=== PATIENT | male | born 1975 ===

== ENCOUNTER 2018-01-21 11:37 | Inpatient (IN) | payer BC ==
--- NOTE | 2018-01-21 11:56 | ED PDOC ---
Arrival/HPI - General Time Seen by Provider: 01/21/18 11:52 Historian: Patient - History of Present Illness Narrative History of Present Illness (Text): 01/21/18 11:53 42 year old male, whose past medical history includes anxiety and depression, who presents to the Emergency department complaining of a bad episode of depression. Patient notes he's been trying to deal with it himself but "it's too overwhelming". Patient notes he is not suicidal but has negative thoughts about hurting himself. Patient notes he recently put dog's collar around his neck. On another occasion, patient put screw mobile lounge driver or operator to chest to hurt himself. Patient denies any fevers, chills, chest pain, shortness of breath, abdominal pain, nausea, vomiting, diarrhea, back pain, neck pain, urinary symptoms, headache, dizziness, homicidal ideation or any other complaint. Symptom Course: Unchanged Activities at Onset: Light Context: Home Past Medical History - Provider Review Nursing Documentation Reviewed: Yes Family/Social History - Physician Review Nursing Documentation Reviewed: Yes Family/Social History: Unknown Family HX Allergies/Home Meds Allergies/Adverse Reactions: Allergies No Known Allergies Allergy (Verified 01/21/18 12:03) Home Medications: Home Meds Medication Instructions Recorded Confirmed Alprazolam [Xanax] 0.5 mg PO PRN PRN 01/21/18 01/21/18 Review of Systems - Physician Review All systems were reviewed & negative as marked: Yes - Review of Systems Constitutional: Normal Eyes: Normal ENT: Normal Respiratory: Normal. absent: SOB, Cough Cardiovascular: Normal. absent: Chest Pain Gastrointestinal: Normal. absent: Abdominal Pain, Diarrhea, Nausea, Vomiting Genitourinary Male: Normal. absent: Dysuria, Frequency Musculoskeletal: Normal. absent: Back Pain, Neck Pain Skin: Normal. absent: Rash Neurological: Normal. absent: Headache, Dizziness Endocrine: Normal Hemo/Lymphatic: Normal Psychiatric: Depression Physical Exam - Physical Exam Narrative Physical Exam (Text): 01/21/18 12:08 01/21/18 12:07 Gen: VS reviewed, alert, well developed, well nourished, nontoxic, mild distress. Sad aspect. ENT: normal pharynx. Eye: EOMI, PERRL. Neck: no JVD, supple, no adenopathy. CV: regular rate, regular rhythm, no rubs, no murmur, no gallops, S1, S2, pulses equal and strong. Pulm: no distress, clear to auscultation, no wheeze, no rhonchi, breath sounds equal, no rales. Abd: soft, nontender, no guarding, no rebound, no rigidity, normal bowel sounds. Ext: no edema. Skin: good color, no rash, no cyanosis. Psych: responds appropriately to questions, normal affect. Neuro: oriented x 3, CN2-12 intact grossly, motor intact, sensation intact. Vital Signs Reviewed: Yes Vital Signs Temp Pulse Resp BP Pulse Ox 01/21/18 11:49 98.4 F 65 18 104/67 100 01/21/18 11:37 98.4 F 65 18 104/67 100 Temperature: Afebrile Blood Pressure: Normal Pulse: Regular Respiratory Rate: Normal Appearance: Positive for: Well-Appearing, Non-Toxic, Comfortable Pain Distress: None Mental Status: Positive for: Alert and Oriented X 3 Medical Decision Making ED Course and Treatment: 01/21/18 12:08 Impression: 42 year old male presents to the Emergency department complaining of a bad episode of depression. Plan: -- EKG -- Labs -- CXR -- UA -- Reassess and disposition Progress Notes: 01/21/18 13:08 CXR reviewed, shows: LUNGS: No active pulmonary disease. PLEURA: No significant pleural effusion identified, no pneumothorax apparent. CARDIOVASCULAR: Normal. OSSEOUS STRUCTURES: No significant abnormalities. VISUALIZED UPPER ABDOMEN: Normal. OTHER FINDINGS: None. IMPRESSION: No active disease. 01/21/18 15:02 admit accepted to service of dr. griffiths for inpt tx of depression and suicidal ideation. patient is medically stable for psych eval, admit, transfer if needed. 01/21/18 15:06 - Lab Interpretations Lab Results: 01/21/18 12:40 01/21/18 12:40 Lab Results 01/21/18 12:40: Alcohol, Quantitative < 10 01/21/18 12:40: Salicylates < 1 L, Acetaminophen < 10.0 L 01/21/18 12:40: Sodium 142, Potassium 4.2, Chloride 104, Carbon Dioxide 26, Anion Gap 16, BUN 15, Creatinine 1.1, Est GFR ( Amer) > 60, Est GFR (Non- Af Amer) > 60, Random Glucose 97, Calcium 9.7, Total Bilirubin 1.2, AST 29, ALT 33, Alkaline Phosphatase 68, Total Protein 7.4, Albumin 4.5, Globulin 2.9, Albumin/Globulin Ratio 1.6 01/21/18 12:40: WBC 5.9, RBC 4.99, Hgb 14.3, Hct 41.1 L, MCV 82.4, MCH 28.7, MCHC 34.8, RDW 13.1, Plt Count 193, MPV 9.5, Gran % 60.9, Lymph % (Auto) 31.6, [place] % (Auto) 7.0 H, Eos % (Auto) 0.3 L, Baso % (Auto) 0.2, Gran # 3.58, Lymph # (Auto) 1.9, [place] # (Auto) 0.4, Eos # (Auto) 0.0, Baso # (Auto) 0.01 - RAD Interpretation Radiology Orders: 01/21/18 12:04 CHEST PORTABLE [RAD] Stat - Scribe Statement The provider has reviewed the documentation as recorded by the Scribe Yahaira Mata All medical record entries made by the Scribe were at my direction and personally dictated by me. I have reviewed the chart and agree that the record accurately reflects my personal performance of the history, physical exam, medical decision making, and the department course for this patient. I have also personally directed, reviewed, and agree with the discharge instructions and disposition. Disposition/Present on Arrival - Present on Arrival Any Indicators Present on Arrival: No - Disposition Have Diagnosis and Disposition been Completed?: Yes Diagnosis: Depression Disposition Time: 15:03 Patient Plan: Admission Patient Problems: Current Active Problems Problem Status Onset Depression Acute Condition: STABLE
[2018-01-21 12:09] VITALS: O2SAT 100
[2018-01-21 12:58] LABS: BASO # 0.01 K/mm3 (0.0-2.0); BASO % 0.2 % (0.0-3.0); EOS % 0.3 % (1.5-5.0); GRAN # 3.58 (1.4-6.5); GRAN % 60.9 % (50.0-68.0); HEMOGLOBIN 14.3 g/dL (14.0-18.0); LYMPH # 1.9 (1.2-3.4); LYMPH % 31.6 % (22.0-35.0); MEAN CELL VOLUME 82.4 fl (80.0-105.0); MEAN CORPUSCULAR HEMOGLOBIN 28.7 pg (25.0-35.0); MEAN CORPUSCULAR HGB CONC 34.8 g/dl (31.0-37.0); MEAN PLATELET VOLUME 9.5 fl (7.0-11.0); MONO # 0.4 (0.1-0.6); RBC 4.99 10^6/uL (3.5-6.1); RED CELL DISTRIBUTION WIDTH 13.1 % (11.5-14.5); WHITE BLOOD COUNT 5.9 10^3/ul (4.5-11.0)
--- NOTE | 2018-01-21 13:04 | RAD ---
Date of service: 01/21/2018 HISTORY: medical screening COMPARISON: No prior. FINDINGS: LUNGS: No active pulmonary disease. PLEURA: No significant pleural effusion identified, no pneumothorax apparent. CARDIOVASCULAR: Normal. OSSEOUS STRUCTURES: No significant abnormalities. VISUALIZED UPPER ABDOMEN: Normal. OTHER FINDINGS: None. IMPRESSION: No active disease.
[2018-01-21 13:07] LABS: ALB/GLOB RATIO 1.6 (1.1-1.8); ALBUMIN 4.5 g/dL (3.0-4.8); ALT/SGPT 33 U/L (7-56); AST/SGOT 29 U/L (17-59); BLOOD UREA NITROGEN 15 mg/dL (7-21); CALCIUM 9.7 mg/dL (8.4-10.5); GFR AFRICAN-AMERICAN > 60; GFR NON-AFRICAN AMERICAN > 60
[2018-01-21 13:08] LABS: ACETAMINOPHEN < 10.0 ug/ml (10.0-20.0); SALICYLATE < 1 mg/dL (2.0-20.0)
[2018-01-21 15:21] LABS: URINE BILIRUBIN NEGATIVE (NEGATIVE); URINE BLOOD NEGATIVE (NEGATIVE); URINE GLUCOSE (UA) NEGATIVE (NEGATIVE); URINE LEUKOCYTE ESTERASE NEGATIVE Leu/uL (NEGATIVE); URINE PROTEIN NEGATIVE mg/dL (<30 mg/dL); URINE UROBILINOGEN 0.2 E.U./dL (<1 E.U./dL)
[2018-01-21 15:23] LABS: URINE APPEARANCE CLEAR (CLEAR); URINE COLOR YELLOW (YELLOW)
[2018-01-21 15:42] LABS: BARBITURATES, UR NEGATIVE (NEGATIVE); BENZODIAZEPINES, UR POSITIVE (NEGATIVE); OPIATES, UR NEGATIVE (NEGATIVE); PHENCYCLIDINE, UR NEGATIVE (NEGATIVE)
--- NOTE | 2018-01-21 19:09 | PCM.BM ---
<Trisha Francis - Last Filed: 01/21/18 19:06> Treatment Plan Problems - Problems identified on initial assessmt high risk suicidal Date Initiated: 01/21/18 Time Initiated: 19:07 Assessment reference: NA Status: Active hopeless/helplessness Date Initiated: 01/21/18 Time Initiated: 19:07 Assessment reference: NA Status: Active ineffective coping Date Initiated: 01/21/18 Time Initiated: 19:08 Assessment reference: NA Status: Active altered sleep pattern Date Initiated: 01/21/18 Time Initiated: 19:09 Assessment reference: NA Status: Active Treatment assets and liabiliti Patient Assests: adapts well, cooperative, ADL independent, good support system , negotiates basic needs Patient Liabilities: other - Milieu Protocol Maintain good personal hygiene: daily Encourage regular showers, daily Remind patient to perform daily oral care, every shift Assist patient to perform ADL's Conduct patient checks and document Observation sheet: Q15 minutes Maintain personal safety: every shift Educate patient to report safety concerns to staff, every shift Monitor environment for contraband/sharps Medication safety: Monitor for expected outcome, potential side effects: every shift, Assess barriers to learning: every shift, Assess readiness for medication education: every shift Family Contact Family involvement: Family/SO is involved - Goals for Treatment Patient goals for treatment: '' I WANT TO GET BETTER AND FEEL LIKE MYSELF". Discharge/Continuing Care - Education Needs Education Needs: Patient Medication, Patient Diagnosis/Disease Process, Patient Coping Skills - Discharge Discharge Criteria: Tolerates medication w/o severe side effects, Free of Suicidal thoughts, Free of Homicidal thoughts, Free of paranoid thoughts, Free of agitation, Normal sleep pattern, Ability to care for self <Marisela Price - Last Filed: 01/23/18 08:04> Family Contact Family involvement: Family/SO is involved <Niurka Hernandez - Last Filed: 01/24/18 09:21> - Diagnosis (1) MDD (major depressive disorder) Status: Acute Interventions: 01/24/18 09:21 Psychoeducation Psychopharmacology/adjustment of medications as needed/ monitoring possible side effects Evaluate pt on daily basis Compliance with medications and follow up appointments Suicide and homicide risk assessment and prevention Relapse prevention Reduction of symptoms Improve functional status Family involvement As outpatient: cognitive behavioral therapy
[2018-01-22 07:07] VITALS: RESP 20
--- NOTE | 2018-01-22 12:42 | CARD ---
APPROVED REPORT Date of service: 01/21/2018 EKG Measurement Heart [id number] <Conclusion> Sinus bradycardia Otherwise normal ECG
--- NOTE | 2018-01-22 15:10 | PCM.PSYCH ---
Initial Psychiatric Evaluation - Initial Psychiatric Evaluation Type of Admission: Voluntary Legal Status: Capacity (atient has capacity to sign consent for treatment) Chief Complaint (in patient's own words): "I was just overwhelmed" Patient's Reaction to Hospitalization: patient was admitted for evaluation and stabilization ofdepressive symptoms and possible suicidal ideation History of Present Illness and Precipitating Events: shortly patient is 42-year-old male self reported history of anxiety and depression patient came to the hospital looking for help for his depression as well as possible suicidal ideation, patient pose a danger to self and offered to admission he shouldn't reluctantly signed in into the psychiatric inpatient unit facing involuntary commitment. Patient was seen today at the treatment team meeting, patient presented to have good personal hygiene, good ADLs. Patient reported that he was stressed out about buying the new house, patient reported that he was feeling depressed constantly thinking about it, feeling anxious, patient reported that he started to see Dr. Jose Clark, Recently diagnosed him with ADHD, patient reported that he was prescribed stimulants but he did not tolerate that medication well patient reported that he was feeling very anxious restless and was not able to tolerate that medication well. As per report patient was pointing screwdriver into his chest, dog's collar around his neck in order to kill himself. patient try to minimize his symptoms saying that "I was just overwhelmed. patient reported to feel hopeless, helpless , depressed. Patient denied hearing voices denied seeing things, patient does not present to be psychotic. Patient denied any drugs use, denied smoking cigarettes. patient reported that probably he would feel very anxious, sweating, difficulty being in public areas around people in general, diff. breathing and chest pain. patient lost about 16 lbs in the past 3 weeks ue to his depression. patient reported that he feels remorseful about his affect, patient has family to live for, patient wants to be discharged tomorrow because patient has closing was his house tomorrow. patient denied using drugs, denied smoking cigarettes. Patient reported history of major depressive disorder and generalized anxiety disorder patient was on paxil in the past as well as Klonopin, sonata was started yesterday, patient tolerates medications well, reported that he slept well. patient denied history of suicidal attempts, patient denied history of being admitted to psychiatric inpatient unit. Family history: Patient denied Medical history: Patient denies medical history. 01/21/18 12:40 01/21/18 12:40 Lab Results 01/21/18 15:10: Urine Opiates Screen Negative, Urine Methadone Screen Negative, Ur Barbiturates Screen Negative, Ur Phencyclidine Scrn Negative, Ur Amphetamines Screen Negative, U Benzodiazepines Scrn Positive H, U Oth Cocaine Metabols Negative, U Cannabinoids Screen Negative 01/21/18 15:10: Urine Color Yellow, Urine Appearance Clear, Urine pH 6.0, Ur Specific [place] 1.010, Urine Protein Negative, Urine Glucose (UA) Negative, Urine Ketones Negative, Urine Blood Negative, Urine Nitrate Negative, Urine Bilirubin Negative, Urine Urobilinogen 0.2, Ur Leukocyte Esterase Negative 01/21/18 12:40: Alcohol, Quantitative < 10 01/21/18 12:40: Salicylates < 1 L, Acetaminophen < 10.0 L 01/21/18 12:40: Sodium 142, Potassium 4.2, Chloride 104, Carbon Dioxide 26, Anion Gap 16, BUN 15, Creatinine 1.1, Est GFR ( Amer) > 60, Est GFR (Non- Af Amer) > 60, Random Glucose 97, Calcium 9.7, Total Bilirubin 1.2, AST 29, ALT 33, Alkaline Phosphatase 68, Total Protein 7.4, Albumin 4.5, Globulin 2.9, Albumin/Globulin Ratio 1.6 01/21/18 12:40: WBC 5.9, RBC 4.99, Hgb 14.3, Hct 41.1 L, MCV 82.4, MCH 28.7, MCHC 34.8, RDW 13.1, Plt Count 193, MPV 9.5, Gran % 60.9, Lymph % (Auto) 31.6, [place] % (Auto) 7.0 H, Eos % (Auto) 0.3 L, Baso % (Auto) 0.2, Gran # 3.58, Lymph # (Auto) 1.9, [place] # (Auto) 0.4, Eos # (Auto) 0.0, Baso # (Auto) 0.01 Vital Signs Temp Pulse Pulse Resp BP Pulse Ox 01/22/18 07:06 98.0 F 56 L 20 113/67 01/21/18 18:22 57 L 18 01/21/18 15:52 98.7 F 52 L 18 122/74 100 01/21/18 15:44 98.7 F 52 L 18 122/74 100 01/21/18 11:49 98.4 F 65 18 104/67 100 01/21/18 11:37 98.4 F 65 18 104/67 100 harmacy report was obtained patient was on alprazolam 0.5 mg filed on January 07 Vyvanse 50 mg daily filed January 17 Current Medications: Active Medications Generic Name Dose Route Start Last Admin Trade Name Freq PRN Reason Stop Dose Admin Clonazepam 1 mg 01/21/18 16:29 01/22/18 08:58 Klonopin PO 1 mg BID TREASURE Administration Protocol Clonazepam 1 mg 01/21/18 22:00 01/21/18 21:49 Klonopin PO 1 mg HS TREASURE Administration Protocol Lorazepam 2 mg 01/21/18 15:39 Ativan PO Q6 PRN anxiety/agitation Protocol Lorazepam 2 mg 01/21/18 15:45 Ativan IM Q6 PRN anxiety/agitation Protocol Paroxetine HCl 20 mg 01/21/18 22:00 01/21/18 21:49 Paxil PO 20 mg HS TREASURE Administration Zaleplon 5 mg 01/21/18 15:39 01/21/18 21:49 Sonata PO 5 mg HS PRN Administration Insomnia Ziprasidone 20 mg 01/21/18 15:39 Geodon Inj IM Q6 PRN agitation/anxiety Protocol Ziprasidone 20 mg 01/21/18 15:39 Geodon Cap PO Q6 PRN agitation/anxiety Protocol Past Psychiatric History - Past Psychiatric History Prior Professional Help: see HPI Prior Psychiatric Treatment: see HPI At what hospital: see HPI Duration: see HPI Nature of Treatment: see HPI Explanation of prior treatment: see HPI History of Abuse: see HPI History of ETOH/Drug Use: see HPI History of Family Illness: see HPI Pertinent Medical Hx (Current Medical&Sleep Prob, Allergies): Allergies Allergy/AdvReac Type Severity Reaction Status Date / Time No Known Allergies Allergy Verified 01/21/18 18:59 Alprazolam [Xanax] 0.5 mg PO PRN PRN 01/21/18 Review of Systems - Review of Systems Systems not reviewed;Unavailable: Acuity of Condition - EENT Eyes: As Per HPI Ears: As Per HPI Nose/Mouth/Throat: As Per HPI - Cardiovascular Cardiovascular: As Per HPI - Respiratory Respiratory: As Per HPI - Gastrointestinal Gastrointestinal: As Per HPI - Genitourinary Genitourinary: As Per HPI - Reproductive: Male Reproductive:Male: As Per HPI - Musculoskeletal Musculoskeletal: As Par HPI - Integumentary Integumentary: As Per HPI - Neurological Neurological: As Per HPI - Psychiatric Psychiatric: As Per HPI - Endocrine Endocrine: As Per HPI - Hematologic/Lymphatic Hematologic: As Per HPI Mental Status Examination - Personal Presentation Personal Presentation: Looks stated age - Affect Affect: Flat - Motor Activity Motor Activity: Calm - Reliability in Providing Information Reliability in Providing Information: Fair - Speech Speech: Organized - Mood Mood: Depressed - Formal Thought Process Formal Thought Process: No Impairment - Obsessions/Compulsions Obsessions: None - Cognitive Functions Orientation: Person Attention/Concentration: Easily distracted Estimate of Intelligence: Average Judgement: Intact, as evidence by: Insight regarding need for hospitalization - Risk Risk: Diminished functioning - Strength & Assets Inventory Strength & Assets Inventory: Intelligence, Family support, Education, Employment status, Employment history, Cooperative - Limitations Limitations: Other (SI) DSM 5 DX - DSM 5 DSM 5 Diagnosis: rule out major depressive disorder Rule out generalized anxiety disorder Rule out side effect on stimulants rule out adjustment disorder with depressed and anxious mood - Recommended/Plan of Treatment Treatment Recommendations and Plan of Treatment: Milieu/structure/supportive therapy Medical consult will be considered Paxil was started for depression and anxiety Klonopin 1 mg 3 times a day started for anxiety Sonata 5 mg at the nighttime as needed for insomnia SW consultation for discharge plan and social issues Med management (specify the name, doses, plan to titrate or wean it off) Family involvement Follow up on labs Will monitor closely Pt was educated about risk/benefits and alternatives of medications, coping strategies (safety plan, suicide prevention), relapse prevention, importance of follow up with psychiatrist and therapist, stay away from drugs/alcohol/smoking Projected ELOS: 7 days Prognosis: fair Discharge Plan and Discharge Criteria: Pt will be not depressed or manic, will be more hopeful, will be not psychotic or anxious, will be not having thoughts of harming self or others, will be tolerating medications well, will not have major side effects, will be able to function, will not pose threat to self or others. - Smoking Cessation Smoking Cessation Initiated: No Reason for not providing: denied
--- NOTE | 2018-01-23 17:10 | PCM.PYCHPN ---
Psychiatric Progress Note - Psychiatric Progress Note Patient seen today, length of contact: 30 minutes Patient Chief Complaint: "I feel little better". Problems Identified/Issues Discussed: Suicide/ homicide prevention, past psychiatric h/o, current psychiatric symptoms , medical problems, risk/benefits and alternatives of medications, medications compliance, coping strategies, substance abuse h/o, relapse prevention, importance of follow up with psychiatrist and therapist, discharge plan. Medical Problems: patient reports being healthy Diagnostic Results: 01/21/18 12:40 01/21/18 12:40 Lab Results 01/21/18 15:10: Urine Opiates Screen Negative, Urine Methadone Screen Negative, Ur Barbiturates Screen Negative, Ur Phencyclidine Scrn Negative, Ur Amphetamines Screen Negative, U Benzodiazepines Scrn Positive H, U Oth Cocaine Metabols Negative, U Cannabinoids Screen Negative 01/21/18 15:10: Urine Color Yellow, Urine Appearance Clear, Urine pH 6.0, Ur Specific [place] 1.010, Urine Protein Negative, Urine Glucose (UA) Negative, Urine Ketones Negative, Urine Blood Negative, Urine Nitrate Negative, Urine Bilirubin Negative, Urine Urobilinogen 0.2, Ur Leukocyte Esterase Negative 01/21/18 12:40: Alcohol, Quantitative < 10 01/21/18 12:40: Salicylates < 1 L, Acetaminophen < 10.0 L 01/21/18 12:40: Sodium 142, Potassium 4.2, Chloride 104, Carbon Dioxide 26, Anion Gap 16, BUN 15, Creatinine 1.1, Est GFR ( Amer) > 60, Est GFR (Non- Af Amer) > 60, Random Glucose 97, Calcium 9.7, Total Bilirubin 1.2, AST 29, ALT 33, Alkaline Phosphatase 68, Total Protein 7.4, Albumin 4.5, Globulin 2.9, Albumin/Globulin Ratio 1.6 01/21/18 12:40: WBC 5.9, RBC 4.99, Hgb 14.3, Hct 41.1 L, MCV 82.4, MCH 28.7, MCHC 34.8, RDW 13.1, Plt Count 193, MPV 9.5, Gran % 60.9, Lymph % (Auto) 31.6, [place] % (Auto) 7.0 H, Eos % (Auto) 0.3 L, Baso % (Auto) 0.2, Gran # 3.58, Lymph # (Auto) 1.9, [place] # (Auto) 0.4, Eos # (Auto) 0.0, Baso # (Auto) 0.01 Vital Signs Temp Pulse Pulse Resp BP Pulse Ox 01/23/18 16:00 50 L 117/74 01/23/18 07:05 97.4 F L 75 20 111/77 01/22/18 16:00 52 L 118/76 01/22/18 07:06 98.0 F 56 L 20 113/67 01/21/18 18:22 57 L 18 01/21/18 15:52 98.7 F 52 L 18 122/74 100 01/21/18 15:44 98.7 F 52 L 18 122/74 100 01/21/18 11:49 98.4 F 65 18 104/67 100 01/21/18 11:37 98.4 F 65 18 104/67 100 DSM 5 Symptoms Update: shortly patient is 42-year-old male self reported history of anxiety and depression patient came to the hospital looking for help for his depression as well as possible suicidal ideation, patient pose a danger to self and offered to admission he shouldn't reluctantly signed in into the psychiatric inpatient unit facing involuntary commitment. Patient was seen today at the treatment team meeting, presented to be depressed, flat affect, patient reported that his sleep is improving, patient reported that he feels anxious but "I feel better', yesterday patient insisted to be discharged back to the patient seems to be willing to stay in the hospital until tomorrow, as per staff patient is trying to participate in all group activities, no agitation, no aggression, no psychosis. patient was advised to stay away from the stimulants, patient verbalize understanding. Patient tolerates medications well, no side effects observed or reported, aims 0 , no EPS. Impression: DSM 5 Diagnosis: rule out major depressive disorder Rule out generalized anxiety disorder Rule out side effect from stimulants rule out adjustment disorder with depressed and anxious mood Medication Change: Yes (Paxil was increased to 30 mg) Medical Record Reviewed: Yes Consults ordered or reviewed: patient was seen by medical team in the emergency room, does not require to have medical consult Mental Status Examination - Cognitive Function Orientation: Person, Place, Situation, Time Memory: Intact Attention: Poor Concentration: Poor Association: WNL Fund of Knowledge: WNL - Mood Mood: Depressed ("I feel little better") - Affect Affect: Flat - Speech Speech: Appropriate - Formal Thought Process Formal Thought Process: No Impairment - Suicidal Ideation Suicidal Ideation: No - Homicidal Ideation Homicidal Ideation: No Goal/Treatment Plan - Goal/Treatment Plan Need for Continued Stay: Remain at risks for inpatient hospitalization, Severe depression anxiety, Discharge may exacerbated symptoms, Severe functional impairment Progress Toward Problem(s) and Goals/Treatment Plan: Milieu/structure/supportive therapy Medical consult will be considered Paxil 30 mg at the nighttime depression and anxiety Klonopin 1 mg 3 times a day started for anxiety Sonata 5 mg at the nighttime as needed for insomnia SW consultation for discharge plan and social issues Med management (specify the name, doses, plan to titrate or wean it off) Family involvement Follow up on labs Will monitor closely Pt was educated about risk/benefits and alternatives of medications, coping strategies (safety plan, suicide prevention), relapse prevention, importance of follow up with psychiatrist and therapist, stay away from drugs/alcohol/smoking Estimated Date of D/C: 01/24/18
[2018-01-24 07:16] VITALS: BP 112/69; PULSE 61; TEMP 97.6
--- NOTE | 2018-01-25 08:57 | PCM.PYCHDC ---
Mental Status Examination - Mental Status Examination Orientation: Person, Place, Situation, Time Memory: Intact Mood: Neutral Affect: Constricted (but more reactive, mood congruent) Speech: Appropriate Attention: WNL (much improved) Concentration: WNL (much improved) Association: WNL Fund of Knowledge: WNL Formal Thought Process: No Impairment Description of patient's judgement and insight: Pt has improved insight into mental and medical illness, pt was compliant with medications and unit rules and regulations, pt was going to groups, was calm, cooperative, socially appropriate, no behavioral incidents, no agitation, no aggression. Psychotic Thoughts and Behaviors: Pt denied v/a/t hallucinations, denied paranoid ideations, pt does not appear to be psychotic, and thought process is goal directed. Suicidal Ideation: No Current Homicidal Ideation?: No Plan: pt adamantly denied thoughts of harming self or others denied intent or plan. Discharge Summary - Discharge Note Reason for Hospitalization: patient was admitted for evaluation and stabilization of depressive symptoms and possible suicidal ideation Psychiatric History (includes Medical, Family, Personal Hx): see HPI Laboratory Data: 01/21/18 12:40 01/21/18 12:40 Lab Results 01/21/18 15:10: Urine Opiates Screen Negative, Urine Methadone Screen Negative, Ur Barbiturates Screen Negative, Ur Phencyclidine Scrn Negative, Ur Amphetamines Screen Negative, U Benzodiazepines Scrn Positive H, U Oth Cocaine Metabols Negative, U Cannabinoids Screen Negative 01/21/18 15:10: Urine Color Yellow, Urine Appearance Clear, Urine pH 6.0, Ur Specific [place] 1.010, Urine Protein Negative, Urine Glucose (UA) Negative, Urine Ketones Negative, Urine Blood Negative, Urine Nitrate Negative, Urine Bilirubin Negative, Urine Urobilinogen 0.2, Ur Leukocyte Esterase Negative 01/21/18 12:40: Alcohol, Quantitative < 10 01/21/18 12:40: Salicylates < 1 L, Acetaminophen < 10.0 L 01/21/18 12:40: Sodium 142, Potassium 4.2, Chloride 104, Carbon Dioxide 26, Anion Gap 16, BUN 15, Creatinine 1.1, Est GFR ( Amer) > 60, Est GFR (Non- Af Amer) > 60, Random Glucose 97, Calcium 9.7, Total Bilirubin 1.2, AST 29, ALT 33, Alkaline Phosphatase 68, Total Protein 7.4, Albumin 4.5, Globulin 2.9, Albumin/Globulin Ratio 1.6 01/21/18 12:40: WBC 5.9, RBC 4.99, Hgb 14.3, Hct 41.1 L, MCV 82.4, MCH 28.7, MCHC 34.8, RDW 13.1, Plt Count 193, MPV 9.5, Gran % 60.9, Lymph % (Auto) 31.6, [place] % (Auto) 7.0 H, Eos % (Auto) 0.3 L, Baso % (Auto) 0.2, Gran # 3.58, Lymph # (Auto) 1.9, [place] # (Auto) 0.4, Eos # (Auto) 0.0, Baso # (Auto) 0.01 Vital Signs Temp Pulse Pulse Resp BP Pulse Ox 01/24/18 07:16 97.6 F 61 20 112/69 01/23/18 16:00 50 L 117/74 01/23/18 07:05 97.4 F L 75 20 111/77 01/22/18 16:00 52 L 118/76 01/22/18 07:06 98.0 F 56 L 20 113/67 01/21/18 18:22 57 L 18 01/21/18 15:52 98.7 F 52 L 18 122/74 100 01/21/18 15:44 98.7 F 52 L 18 122/74 100 01/21/18 11:49 98.4 F 65 18 104/67 100 01/21/18 11:37 98.4 F 65 18 104/67 100 Consultations:: List each consultation separately and include: 1. Reason for request. 2. Findings. 3. Follow-up Consultations: patient was seen by medical team in the emergency room, does not require to have medical consult Summary of Hospital Course include:: 1. Description of specific treatment plan utilized for patients during their course of treatmen. 2. Summarize the time- course for resolution of acute symptoms and/or regressed behaviors. 3. Describe issues identified and worked on during hospitalization. 4. Describe medication utilized. 5. Describe medical problems identified and treated. 6. Reassessment of suicide risk Summary of Hospital Course: shortly patient is 42-year-old male self reported history of anxiety and depression patient came to the hospital looking for help for his depression as well as possible suicidal ideation, patient pose a danger to self and offered to admission he shouldn't reluctantly signed in into the psychiatric inpatient unit facing involuntary commitment. initially pt was seen at the treatment team meeting, patient presented to have good personal hygiene, good ADLs. Patient reported that he was stressed out about buying the new house, patient reported that he was feeling depressed constantly thinking about it, feeling anxious, patient reported that he started to see Dr. Jose Clark, Recently diagnosed him with ADHD, patient reported that he was prescribed stimulants but he did not tolerate that medication well patient reported that he was feeling very anxious restless and was not able to tolerate that medication well. As per report patient was pointing screwdriver into his chest, dog's collar around his neck in order to kill himself. patient try to minimize his symptoms saying that "I was just overwhelmed". patient reported to feel hopeless, helpless, depressed. Patient denied hearing voices denied seeing things, patient does not present to be psychotic. Patient denied any drugs use, denied smoking cigarettes. patient reported that he feels very anxious, sweating, difficulty being in public areas around people in general, diff. breathing and chest pain. patient lost about 16 lbs in the past 3 weeks due to his depression. patient reported that he feels remorseful about his act, patient has family to live for. patient denied using drugs, denied smoking cigarettes. Patient reported history of major depressive disorder and generalized anxiety disorder patient was on paxil in the past as well as Klonopin, sonata was started yesterday, patient tolerates medications well, reported that he slept well. patient denied history of suicidal attempts, patient denied history of being admitted to psychiatric inpatient unit. Family history: Patient denied Medical history: Patient denies medical history. 01/21/18 12:40 01/21/18 12:40 Lab Results 01/21/18 15:10: Urine Opiates Screen Negative, Urine Methadone Screen Negative, Ur Barbiturates Screen Negative, Ur Phencyclidine Scrn Negative, Ur Amphetamines Screen Negative, U Benzodiazepines Scrn Positive H, U Oth Cocaine Metabols Negative, U Cannabinoids Screen Negative 01/21/18 15:10: Urine Color Yellow, Urine Appearance Clear, Urine pH 6.0, Ur Specific [place] 1.010, Urine Protein Negative, Urine Glucose (UA) Negative, Urine Ketones Negative, Urine Blood Negative, Urine Nitrate Negative, Urine Bilirubin Negative, Urine Urobilinogen 0.2, Ur Leukocyte Esterase Negative 01/21/18 12:40: Alcohol, Quantitative < 10 01/21/18 12:40: Salicylates < 1 L, Acetaminophen < 10.0 L 01/21/18 12:40: Sodium 142, Potassium 4.2, Chloride 104, Carbon Dioxide 26, Anion Gap 16, BUN 15, Creatinine 1.1, Est GFR ( Amer) > 60, Est GFR (Non- Af Amer) > 60, Random Glucose 97, Calcium 9.7, Total Bilirubin 1.2, AST 29, ALT 33, Alkaline Phosphatase 68, Total Protein 7.4, Albumin 4.5, Globulin 2.9, Albumin/Globulin Ratio 1.6 01/21/18 12:40: WBC 5.9, RBC 4.99, Hgb 14.3, Hct 41.1 L, MCV 82.4, MCH 28.7, MCHC 34.8, RDW 13.1, Plt Count 193, MPV 9.5, Gran % 60.9, Lymph % (Auto) 31.6, [place] % (Auto) 7.0 H, Eos % (Auto) 0.3 L, Baso % (Auto) 0.2, Gran # 3.58, Lymph # (Auto) 1.9, [place] # (Auto) 0.4, Eos # (Auto) 0.0, Baso # (Auto) 0.01 Vital Signs Temp Pulse Pulse Resp BP Pulse Ox 01/22/18 07:06 98.0 F 56 L 20 113/67 01/21/18 18:22 57 L 18 01/21/18 15:52 98.7 F 52 L 18 122/74 100 01/21/18 15:44 98.7 F 52 L 18 122/74 100 01/21/18 11:49 98.4 F 65 18 104/67 100 01/21/18 11:37 98.4 F 65 18 104/ 100 harmacy report was obtained patient was on alprazolam 0.5 mg filed on January 07 Vyvanse 50 mg daily filed January 17 pt was observed and stabilized for the past three days pt was started on the following medications: Paxil 30 mg at the nighttime depression and anxiety (which was slowly increased) Klonopin 1 mg 3 times a day started for anxiety Sonata 5 mg at the nighttime as needed for insomnia pt tolerated medications well, no side effects observed or reported, AIMS 0, no EPS. Over the course of this hospitalization pt was attending groups, pt also had medication management, had therapeutic milieu. Overall pt improved significantly, pt's affect became brighter, pt was less depressed, has realistic future oriented plans, pt also does not appear to be psychotic, or anxious, pt was socially appropriate, no behavioral issues, pts insight improved as well and soon pt deemed to be ready for discharge. At the time of the discharge pt denied been depressed, denied thoughts of harming self or others, denied psychotic symptoms, and pt does not appeared to be psychotic, denied been anxious, pt is not in imminent danger to self or others, will be following up at Dr.Paul Clark's office, DTP was recommended, information about follow up appointment, time and address provided to the pt, it is patient responsibility to follow up with outpatient clinic, PMD as well as specialists (see SW note for more detailed information). In case pt will need to obtain results of studies pending at discharge pt was provided with contact information of Psychiatric Inpatient unit [phone] as well as Medical Record Department [phone]. pt denied using any drugs, denies smoking pt was provided with prescriptions for all of medications (please see medication reconciliation form) Pt was educated about safety plan in case of worsening of symptoms or in case of suicidal or homicidal ideation call 911 or go to the nearest ER, also was educated to take meds as prescribed and stay away from drugs, pt verbalized understanding. - Diagnosis (1) MDD (major depressive disorder) Status: Acute Priority: High - Final Diagnosis (DSM 5) Condition upon Discharge: IMPROVED DSM 5: r/o adjustment disorder with depressed and anxious mood r/o adverse reaction for Vyvanse Disposition: HOME/ ROUTINE Follow-up Treatment Plan: At the time of the discharge pt denied been depressed, denied thoughts of harming self or others, denied psychotic symptoms, and pt does not appeared to be psychotic, denied been anxious, pt is not in imminent danger to self or others, will be following up at Dr.Paul Clark's office, DTP was recommended, information about follow up appointment, time and address provided to the pt, it is patient responsibility to follow up with outpatient clinic, PMD as well as specialists (see SW note for more detailed information). In case pt will need to obtain results of studies pending at discharge pt was provided with contact information of Psychiatric Inpatient unit [phone] as well as Medical Record Department [phone]. pt denied using any drugs, denies smoking pt was provided with prescriptions for all of medications (please see medication reconciliation form) Pt was educated about safety plan in case of worsening of symptoms or in case of suicidal or homicidal ideation call 911 or go to the nearest ER, also was educated to take meds as prescribed and stay away from drugs, pt verbalized understanding. Prescriptions/Medication Reconciliation: clonazePAM [Klonopin] 1 mg PO TID #45 tab PARoxetine [Paxil] 30 mg PO HS #14 tab Zaleplon [Sonata] 5 mg PO HS PRN #14 cap PRN Reason: Insomnia
== END 2018-01-24 15:17 | disposition home or self-care (01) | DRG 881 ==
LOC: ED 11:37 → ERH 15:04 → PSYC 16:29
PROVIDERS: ADMIT Psychiatry & Neurology Psychiatry; ATTEND Psychiatry & Neurology Psychiatry
DX: F32.9 Major depressive disorder, single episode, unspecified (principal); R45.851 Suicidal ideations; F41.1 Generalized anxiety disorder; F43.23 Adjustment disorder with mixed anxiety and depressed mood; F90.9 Attention-deficit hyperactivity disorder, unspecified type; Z79.899 Other long term (current) drug therapy